=== PATIENT | female | born 1985 | race African-American/Black ===

== ENCOUNTER 2017-03-22 07:57 | Emergency (ER) | payer OTHER ==
[~2017-03-22] VITALS: Ht 162.6 cm; Wt 98.9 kg
--- NOTE | ~2017-03-22 | EKG ---
[address] [place] [address] ELECTROCARDIOGRAM REPORT Name: KENZIE MOJICA Room #: [facility]#: [id number] Admission: Attend Phys: Discharge: Date of : 83 Report #: [id number] THIS REPORT FOR: //name// 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
[~2017-03-22 07:57] MED LIST: CIPROFLOXACIN500 M1 PO; CLEOCIN HCL300 MG PO; DIFLUCAN150 MG PO; DOXYCYCLINE 10100 MG PO; FLONASE 0.05%50 MCG NASAL; IBUPROFEN 800800 MG PO; KEFLEX500 MG PO; MACROBID 100 M100 M1 PO; MEDROLDOSEPACK PO; MIRALAX255 GM PO; MUCINEX D TABL1 EAC1 PO; NAPROSYN500 MG PO; NOHOMEMEDICATIONS; NORCO 5-325 TA1 EACH PO; ONDANSETRON HCL4 M2 PO; PERCOCET 5-3251 EACH PO; TOBRAMYCIN SULFA5 ML OP; ZYRTEC10 MG PO; [UNRECOGNIZED DRUG - OTHER]
[2017-03-22] MEDS ORDERED: PREDNISONE 20 M20 MG PO (08:12)
[2017-03-22] MEDS ORDERED: VALIUM5 MG PO (08:12)
[2017-03-22] MEDS ORDERED: NORCO 5-325 TA1 EACH PO (08:12)
== END 2017-03-22 08:40 | disposition home or self-care (01) ==
LOC: ER 07:57
DX: M54.12 Radiculopathy, cervical region (principal); M75.02 Adhesive capsulitis of left shoulder; Z88.1 Allergy status to other antibiotic agents

== ENCOUNTER 2017-09-11 01:08 | Emergency (ER) | payer OTHER ==
[~2017-09-11] VITALS: Ht 162.6 cm; Wt 95.3 kg
--- NOTE | ~2017-09-11 | EKG ---
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 : 1985 Requested By: Erick Hernandez Order Number: [id number] MD: Kwaku Aleajndro Measurements Intervals [place] Rate: 114 P: 56 NC: 147 QRS: 3 QRSD: 90 T: 0 QT: 322 QTc: 444 Interpretive Statements Sinus tachycardia Borderline T abnormalities, inferior leads Compared to ECG 03/22/2017 08:09:35 T-wave abnormality now present Sinus rhythm no longer present Electronically Signed On 09-11-2017 7:28:46 CDT by Kwaku Alejandro [email or web address] <ELECTRONICALLY SIGNED> By: Kwaku Alejandro MD 09/11/17 0728 3 3 Kwaku Alejandro MD /YANY
[~2017-09-11 01:08] MED LIST changes: +PREDNISONE 20 M20 MG PO; +VALIUM5 MG PO
[2017-09-11] MEDS ORDERED: AMOX TR-K CLV1 EAC4 PO (01:20)
[2017-09-11] MEDS ORDERED: LORATIDINE 10 M10 M1 PO (01:21)
[2017-09-11 01:45] LABS: ABSOLUTE NEUTROPHILS 6.5 thou/uL (1.4-8.2); BASOPHILS 0.5 % (0.0-2.0); EOSINOPHILS 1.2 % (0.0-3.0); HEMATOCRIT 35.6 % (37.0-47.0); HEMOGLOBIN 11.4 gm/dL (12.0-15.0); LYMPHOCYTES 33.8 % (24.0-44.0); MCH 25.6 pg (26.0-34.0); MCV 80.2 fL (80.0-100.0); MONOCYTES 6.8 % (1.0-8.0); PLATELET COUNT 364 thou/uL (150-400); POLYS 57.7 % (36.0-66.0); RBC 4.44 mil/uL (4.20-5.00); RDW 15.6 % (10.5-14.5); WBC 11.2 thou/uL (4.0-11.0)
[2017-09-11 01:47] LABS: ANION GAP 11 mmol/L (7-16); BUN 19 mg/dL (7-18); CALCIUM 8.6 mg/dL (8.5-10.1); CHLORIDE 102 mmol/L (98-107); CO2 25 mmol/L (21-32); GLUCOSE 104 mg/dL (74-106); POTASSIUM 3.9 mmol/L (3.5-5.1); SODIUM 138 mmol/L (136-145)
[2017-09-11 01:49] LABS: URINE BILIRUBIN NEGATIVE (Negative); URINE BLOOD NEGATIVE (Negative); URINE CLARITY CLEAR; URINE COLOR STRAW; URINE GLUCOSE-RANDOM* NEGATIVE (Negative); URINE KETONES NEGATIVE (Negative); URINE LEUKOCYTES-REFLEX NEGATIVE (Negative); URINE NITRITE-REFLEX NEGATIVE (Negative); URINE PROTEIN (DIPSTICK) NEGATIVE (Negative); URINE UROBILINOGEN 0.2 E.U./dl (0.2-1.0)
[2017-09-11 01:56] LABS: TROPONIN-I < 0.04 ng/mL (<0.06)
[2017-09-11 03:02] LABS: AMP/METHAMP Negative (Negative); BARBITURATES Negative (Negative); BENZODIAZEPINES Negative (Negative); COCAINE Negative (Negative); METHADONE Negative (Negative); OPIATES Negative (Negative); PCP Negative (Negative)
[2017-09-11] MEDS ORDERED: IBUPROFEN 600600 M1 PO (04:50)
[2017-09-11] MEDS ORDERED: NORFLEX100 MG PO (04:50)
== END 2017-09-11 05:04 | disposition home or self-care (01) ==
LOC: ER 01:08
PROVIDERS: Emergency Medicine
DX: R42 Dizziness and giddiness (principal); R00.2 Palpitations; M54.6 Pain in thoracic spine; Z88.1 Allergy status to other antibiotic agents; Z88.8 Allergy status to other drugs, medicaments and biological substances

== ENCOUNTER 2018-09-02 18:13 | Emergency (ER) | payer OTHER ==
[~2018-09-02] VITALS: Ht 162.6 cm; Wt 96.2 kg
[~2018-09-02 18:13] MED LIST changes: +AMOX TR-K CLV1 EAC4 PO; +IBUPROFEN 600600 M1 PO; +LORATIDINE 10 M10 M1 PO; +NORFLEX100 MG PO
[2018-09-02 18:38] VITALS: BP 133/77
[2018-09-02] MEDS ORDERED: IBUPROFEN 400400 M2 PO (18:45)
[2018-09-02] MEDS ORDERED: FLEXERIL PO (18:45)
== END 2018-09-02 19:02 | disposition home or self-care (01) ==
LOC: ER 18:13
DX: M54.5 Low back pain (principal); Z88.1 Allergy status to other antibiotic agents; Z88.8 Allergy status to other drugs, medicaments and biological substances

== ENCOUNTER 2019-02-18 09:21 | Emergency (ER) | payer OTHER ==
[~2019-02-18] VITALS: Ht 162.6 cm; Wt 90.7 kg
[~2019-02-18 09:21] MED LIST changes: +FLEXERIL PO; +IBUPROFEN 400400 M2 PO
[2019-02-18 13:08] VITALS: BP 124/84
== END 2019-02-18 12:30 | disposition home or self-care (01) ==
LOC: ER 09:21
DX: R05 Cough (principal); Z88.8 Allergy status to other drugs, medicaments and biological substances; Z98.890 Other specified postprocedural states; Z90.10 Acquired absence of unspecified breast and nipple

== ENCOUNTER 2019-11-22 13:57 | Emergency (ER) | payer OTHER ==
[~2019-11-22] VITALS: Ht 162.6 cm; Wt 88.5 kg
[2019-11-22] MEDS ORDERED: NOHOMEMEDICATIONS (14:08)
[2019-11-22 14:53] LABS: BASOPHILS 0.4 % (0.0-2.0)
[2019-11-22 15:10] LABS: EOSINOPHILS 0.3 % (0.0-3.0); HEMATOCRIT 36.3 % (37.0-47.0); LYMPHOCYTES 17.3 % (24.0-44.0); MCHC 33.1 g/dL (28.0-37.0); MCV 84.8 fL (80.0-100.0); MONOCYTES 8.8 % (1.0-8.0); PLATELET COUNT 265 thou/uL (150-400); POLYS 73.2 % (36.0-66.0); RBC 4.28 mil/uL (4.20-5.00); RDW 15.2 % (10.5-14.5); WBC 13.7 thou/uL (4.0-11.0)
[2019-11-22 15:24] LABS: CALCIUM 7.9 mg/dL (8.5-10.1); CREATININE 0.9 mg/dL (0.6-1.0); POTASSIUM 3.8 mmol/L (3.5-5.1)
[2019-11-22 15:39] VITALS: BP 112/65
== END 2019-11-22 15:39 | disposition home or self-care (01) ==
LOC: ER 13:57
PROVIDERS: Emergency Medicine
DX: L73.2 Hidradenitis suppurativa (principal); D72.829 Elevated white blood cell count, unspecified; R00.0 Tachycardia, unspecified; Z88.8 Allergy status to other drugs, medicaments and biological substances

== ENCOUNTER 2019-11-24 19:50 | Inpatient (IN) | payer OTHER ==
[~2019-11-24] VITALS: Ht 162.6 cm; Wt 85.7 kg
[2019-11-24 19:55] VITALS: BP 116/83
[2019-11-24] MEDS ORDERED: BACTRIM DS TAB1 EAC1 PO (20:04)
[2019-11-24 21:17] LABS: BASOPHILS 0.5 % (0.0-2.0); EOSINOPHILS 0.6 % (0.0-3.0); HEMATOCRIT 35.5 % (37.0-47.0); HEMOGLOBIN 12.1 gm/dL (12.0-15.0); LYMPHOCYTES 18.4 % (24.0-44.0); MCH 28.5 pg (26.0-34.0); MCV 83.8 fL (80.0-100.0); MONOCYTES 7.7 % (1.0-8.0); PLATELET COUNT 309 thou/uL (150-400); POLYS 72.8 % (36.0-66.0); RBC 4.24 mil/uL (4.20-5.00); RDW 14.4 % (10.5-14.5)
[2019-11-24 21:40] LABS: CALCIUM 8.2 mg/dL (8.5-10.1); CREATININE 1.1 mg/dL (0.6-1.0)
[2019-11-24 21:45] LABS: ALBUMIN 2.7 g/dL (3.4-5.0); TOTAL BILIRUBIN 0.5 mg/dL (0.2-1.0); TOTAL PROTEIN 8.5 g/dL (6.4-8.2)
[2019-11-24 21:45] LABS: URINE BILIRUBIN NEGATIVE (Negative); URINE BLOOD NEGATIVE (Negative); URINE CLARITY CLEAR; URINE COLOR YELLOW; URINE GLUCOSE-RANDOM* NEGATIVE (Negative); URINE KETONES NEGATIVE (Negative); URINE LEUKOCYTES-REFLEX TRACE (Negative); URINE NITRITE-REFLEX NEGATIVE (Negative); URINE PROTEIN (DIPSTICK) NEGATIVE (Negative)
[2019-11-24 23:03] VITALS: BP 115/68
[2019-11-24 23:12] VITALS: BP 97/79
[2019-11-24 23:45] VITALS: BP 110/66
[2019-11-25] VITALS (8 sets, daily range): BP systolic 109–128; BP diastolic 65–84
--- NOTE | 2019-11-25 02:00 | NUR ---
2325 ADMITTED TO ROOM 209 PER WHEELCHAIR. UP WITH STEADY GAIT. INSTRUCTED TO CALL FOR ASSISTANCE WHEN UP DUE TO IV AND SCD. ADMISSION PROCESS COMPLETED. HYDORMORPHONE GIVEN FOR PAIN OF RIGHT AXILLA ABCESSES WITH NOTED RELIEF.
--- NOTE | 2019-11-25 06:38 | NUR ---
CONSULTS CALLED. SLEPT PAST PAIN MEDICATION. RIGHT AXILLA ABCESSES WEEPING FOULD SMELLING [place] COLORED FLUID, USING ABD PADS TO ABSORB FLUID. WORKING ON GOALS AND PLAN OF CARE FOR NOC. REMAINS NPO FOR POSSIBLE SURGERY TO ABCESSES. NOT PROGRESSING TOWARDS DISCHARGE GOALS. CONTINUE TO ASSES.
[2019-11-25 08:00] LABS: ABSOLUTE NEUTROPHILS 10.2 thou/uL (1.4-8.2); BASOPHILS 0.2 % (0.0-2.0); EOSINOPHILS 1.1 % (0.0-3.0); HEMATOCRIT 33.4 % (37.0-47.0); LYMPHOCYTES 21.5 % (24.0-44.0); MCV 84.7 fL (80.0-100.0); MONOCYTES 8.6 % (1.0-8.0); PLATELET COUNT 266 thou/uL (150-400); POLYS 68.6 % (36.0-66.0); RBC 3.94 mil/uL (4.20-5.00); RDW 14.5 % (10.5-14.5); WBC 14.8 thou/uL (4.0-11.0)
[2019-11-25 08:04] LABS: CALCIUM 7.9 mg/dL (8.5-10.1); CREATININE 0.9 mg/dL (0.6-1.0); MAGNESIUM 2.1 mg/dL (1.8-2.4); POTASSIUM 3.9 mmol/L (3.5-5.1)
--- NOTE | 2019-11-25 09:52 | NUR ---
AAOX4. CALM, COOPERATIVE. C/O RIGHT AXILLA PAIN AT SITE OF WOUNDS; TX ORDERED. NPO FOR I&D BY DR. SHEETS LATER TODAY. HCG ORDERED. WBC 14.8 NOTED. WILL CONTINUE TO FOLLOW CLOSELY.
--- NOTE | 2019-11-25 12:57 | NUR ---
COLLECTED A COVID-19 SWAB PREOP I&D. VERY UNCOMFORTABLE FOR HER.
--- NOTE | 2019-11-25 17:23 | NUR ---
PT CARE ASSUMED APPROX 1600 WHILE PT STILL OFF UNIT FOR SURGERY. WILL ASSESS AND CHART ANY ABNORMALITY OR DISTRESS NOTED ONCE PT RETURNS.
[2019-11-26 00:06] VITALS: BP 101/69
[2019-11-26 04:05] VITALS: BP 111/65
--- NOTE | 2019-11-26 04:50 | NUR ---
ASSESSMENT DOCUMENTED.PT BEEN RESTING IN NO ACUTE DISTRESS.A/OX4.VSS.S/P ABSCESS I&D TO RIGHT AXILLA,DRESSING REPLACED,NO ACTIVE BLEEDING NOTED.PT DENIES PAIN.SBA WITH TOILETING.IV ANTIBIOTICS INFUSED PER ORDERS.NO CONCERNS VOICED AT THIS TIME.WILL CONT TO MONITOR PER POC.
[2019-11-26 05:35] LABS: BASOPHILS 0.1 % (0.0-2.0); HEMATOCRIT 35.9 % (37.0-47.0); HEMOGLOBIN 11.7 gm/dL (12.0-15.0); LYMPHOCYTES 10.2 % (24.0-44.0); MCH 28.1 pg (26.0-34.0); MCHC 32.6 g/dL (28.0-37.0); MCV 86.3 fL (80.0-100.0); MONOCYTES 2.8 % (1.0-8.0); PLATELET COUNT 302 thou/uL (150-400); POLYS 86.9 % (36.0-66.0); RBC 4.16 mil/uL (4.20-5.00); RDW 14.5 % (10.5-14.5); WBC 13.8 thou/uL (4.0-11.0)
[2019-11-26 06:16] LABS: CALCIUM 8.6 mg/dL (8.5-10.1); CREATININE 0.9 mg/dL (0.6-1.0); MAGNESIUM 2.2 mg/dL (1.8-2.4); POTASSIUM 4.4 mmol/L (3.5-5.1)
[2019-11-26 07:58] VITALS: BP 107/65
--- NOTE | 2019-11-26 10:20 | NUR ---
chart review, consult for hh, pt is [facility] /medicaid. cm visited with pt via phone call. intro to cm and transition of care ie hh list choice. a & o x 3, and able to make her needs know. she reported " live in apartment, with 11yr old son, he has care while i in hospital. 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 no past rehab or hh needs in past. iv abx in hospital before then changed to pills abx at home. i think can do own dressing if needed. i would like to get back to work as soon as says i cane. primary care is at [facility] dr riley martinez. will cont following as needed for dc needs. brad notified bedside nurse rt hh consult and campos need to be notified rt pt will not qualify for hh if she returns to work. brad sent message to hospitalist as well.
[2019-11-26] MEDS ORDERED: OXYCODONE HCL 55 MG PO (10:30)
[2019-11-26] MEDS ORDERED: AUGMENTIN 875-1 EACH PO (10:30)
[2019-11-26 17:19] VITALS: BP 99/62
--- NOTE | 2019-11-26 20:30 | NUR ---
RECEIVED PT'S CARE AROUND 724; PT. ON BED; AOX4; DURING AM ASSESSMENT NO C/O PAIN; REFUSED AM MEDICATION; THROUGH THE DAY REFUSED SCHEDULED PAIN MEDICATION; IV PRN PAIN MEDICATION GIVEN WHEN WOUND CARE PERFORMED; PT. NOT ABLE TO TOLERATE WELL UNPACKING; PHYSICIANS NOTIFIED; PER DR. TREVIZO PT. REQUIRE TO STAY AT LEAST TWO MORE DAYS; HOSPITALIST NOTIFIED; NO NEW ORDERS; DRESSING CHANGED; D/C IV FLUIDS; SR ON THE MONITOR; ASSESSMENT CHARGED; FOLLOWING POC; PASSED ON REPORT;
[2019-11-26 20:49] VITALS: BP 110/63
[2019-11-27] VITALS (7 sets, daily range): BP systolic 101–111; BP diastolic 58–72
--- NOTE | 2019-11-27 05:27 | NUR ---
ASSESSMENTS CHARTED, MEDS GIVEN CHARTED. PATIENT RESTING IN BED DURING SHIFT. UP AT LG IN ROOM. HAD BOWEL MOVEMENT. CHANGED ABD PAD ON RIGHT AXILLARY. AT 0400 SHE STATED HER PAIN WAS A 5, BUT HER DIGESTIVE SYSTEM WAS UPSET FROM ALL THE PRUNE JUICE SHE DRANK EARLIER THAT SHE DID NOT WANT TO TAKE ANY PAIN MED VIA PO. IS WILLLING TO WAIT FOR PAIN MEDS WITH DRESSING CHANGE. FALL PRECAUTIONS IN PLACE DURING SHIFT.
--- NOTE | 2019-11-27 10:27 | NUR ---
cm visited with sy via phone call she stated " feeling little better and i will be staying home to heal before going back to work and will be ok with any company that take my insurance. i am going to be going home "/sy cm notified by [facility] that they do not take [employer] and was sorry for miss information. fax referral to [facility].
--- NOTE | 2019-11-27 13:16 | NUR ---
FAXED REFERRAL TO [facility] SPOKE WITH INTAKE THEY DO NOT TAKE PT'S INSURANCE. FAXED REFERRAL TO [facility] SPOKE WITH KEN THEY DO NOT TAKE PT'S INSURANCE FAXED RFERRAL TO [facility] SPOKE WITH JANE IN INTAKE THEY TAKE INSURANCE BUT AT [facility] RIGHT NOW.
--- NOTE | 2019-11-27 14:12 | NUR ---
FAXED REFERRAL TO [facility] SPOKE WITH JAIRO IN INTAKE SHE RECEIVED REFERRAL AND WILL ACCEPT AT [place].
--- NOTE | 2019-11-27 14:21 | NUR ---
RECEIVED PT'S CARE AROUND 0710; PT. ON BED; AOX4; DURING AM ASSESSMENT C/O PAIN; 11/24; PRN DAILY DRESSING CHANGE GIVEN WITH AM MEDICATIONS; REFUSED MIRALAX & STOOL SOFTNER; EDUCATED ABOUT PAIN MANAGEMENT; ABLE TO TOLERATE WOUND CARE AFTER ONE HOUR OF PAIN MEDICATION GIVEN; PHYSICIAN NOTIFIED DURING ROUNDING; D/C ORDERS ON PLACE; PT. 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
--- NOTE | 2019-11-27 14:37 | NUR ---
FAXED REFERRAL TO [facility] SPOKE WITH JANE IN INTAKE SHE RECEIVED REFERRAL AND WILL ACCEPT AT [place]. FAXED DC ORDERS/SUMMARY TO [facility] RECEIVED JENAAITON AND JANE IN INTAKE WILL NOTIFY PT TIME OF VISITS.
== END 2019-11-27 17:11 | disposition home or self-care (01) | DRG 872 ==
LOC: ER 19:50 → EROBS 22:26 → 2N 22:26 → ER 23:14 → 2N 23:14
PROVIDERS: Emergency Medicine; Nurse Practitioner Family; ADMIT Hospitalist; ATTEND Hospitalist
PROC: 0X940ZZ Drainage of Right Axilla, Open Approach (ICD-10-PCS; principal; 2019-11-25)
DX: A41.9 Sepsis, unspecified organism (principal); L02.411 Cutaneous abscess of right axilla; L73.2 Hidradenitis suppurativa; K21.9 Gastro-esophageal reflux disease without esophagitis; E66.9 Obesity, unspecified; Z68.32 Body mass index [BMI] 32.0-32.9, adult; Z20.828 Contact with and (suspected) exposure to other viral communicable diseases; Z88.6 Allergy status to analgesic agent; Z88.8 Allergy status to other drugs, medicaments and biological substances; Z81.8 Family history of other mental and behavioral disorders; Z83.6 Family history of other diseases of the respiratory system; Z84.1 Family history of disorders of kidney and ureter; Z82.49 Family history of ischemic heart disease and other diseases of the circulatory system
CPT/HCPCS: 10081; 50010; 50101; 50386; 50417; 62110; 62900; 70005